=== PATIENT | male | born 1950 | race Caucasian/White ===

== ENCOUNTER 2020-11-24 09:22 | Emergency (ER) | payer MEDICARE, OTHER ==
[~2020-11-24] VITALS: Ht 182.9 cm; Wt 113.6 kg
[~2020-11-24 09:22] MED LIST: ASPIRIN 81M81 MG/TA2 PO; LEVOXYL0.1 MG PO; LIPITOR 10MG10 MG PO; LIPITOR 80MG80 MG PO; LOPRESSOR 225 MG/TAB PO; MULTIPLE VITAMI1 TAB PO; NIACIN500 MG PO; PLAVIX 75MG TAB75 MG PO; XALATAN EYE DROPS OU
[2020-11-24 09:25] VITALS: TEMP 98.1
[2020-11-24 09:57] LABS: BASO # 0.1 (0.0-0.2); BASO % 1.7 % (0.0-2.0); EOS # 0.3 (0.0-0.7); GRAN # 3.1 (1.4-6.5); GRAN % 48.7 % (42.2-75.2); HEMATOCRIT 43.9 % (42.0-52.0); HEMOGLOBIN 14.9 g/dl (13.5-18.0); LYMPH # 1.9 (1.2-3.4); LYMPH % 29.8 % (20.0-51.0); MEAN CELL VOLUME 93 fl (80.0-100.0); MEAN CORPUSCULAR HEMOGLOBIN 32 pg (27.0-31.0); MEAN CORPUSCULAR HGB CONC 34 g/dl (33.0-37.0); MEAN PLATELET VOLUME 10.7 fl (7.4-10.4); MONO # 0.9 (0.1-0.6); MONO % 14.2 % (1.7-9.3); PLATELET COUNT 230 K/mm3 (130-400); REDCELL DISTRIBUTION WIDTH-CV 12.4 % (11.5-14.5)
[2020-11-24 10:07] LABS: ALANINE AMINOTRANSFERASE 30 U/L (4-49); ALBUMIN 4.1 gm/dL (3.5-5.0); ALKALINE PHOSPHATASE 65 U/L (50-136); ANION GAP 9 mmol/L (7-16); AST,SGOT 36 U/L (15-37); BILIRUBIN,TOTAL 0.7 mg/dL (0.0-1.0); BLOOD UREA NITROGEN 11 mg/dL (9-20); CALCIUM 8.9 mg/dL (8.4-10.2); CARBON DIOXIDE 26 mmol/L (22-30); CHLORIDE 106 mmol/L (98-107); CREATININE, serum 0.97 (0.66-1.25); GLUCOSE 132 mg/dL (74-106); POTASSIUM 4.4 mmol/L (3.4-5.0); SODIUM 141 mmol/L (137-145); TOTAL PROTEIN 7.8 gm/dL (6.4-8.2)
[2020-11-24 10:22] LABS: TROPONIN-I < 0.012 ng/mL (0.000-0.035)
[2020-11-24 12:25] VITALS: BP 130/62; PULSE 80
== END 2020-11-24 12:27 | disposition home or self-care (01) ==
LOC: COL.ER 09:22
PROVIDERS: Emergency Medicine
DX: R07.89 Other chest pain (principal); I25.10 Atherosclerotic heart disease of native coronary artery without angina pectoris; E78.5 Hyperlipidemia, unspecified; E03.9 Hypothyroidism, unspecified; Z95.5 Presence of coronary angioplasty implant and graft; Z79.82 Long term (current) use of aspirin; Z79.02 Long term (current) use of antithrombotics/antiplatelets; Z79.890 Hormone replacement therapy; Z79.899 Other long term (current) drug therapy